=== PATIENT | female | born 1955 | race Caucasian/White ===

== ENCOUNTER → 2016-11-02 | Outpatient (CLI) | payer OTHER ==
[~2016-11-02] MED LIST: ACET-1138 PO; ASCO1CAP3 PO; ASPEC81 PO; B-COCAP2 PO; BIOT1CAP3 PO; CALC-51 PO; CURAMED PO; CYAN100020 PO; FEXO1TAB49 PO; FLUT0.15 NAE; GOLD500C3 PO; MELATAB2 PO; OMEG10007 PO; ONDA8TAB12 PO; OXYSR10 PO; RXC5 PO; SNK PO; TURM1CAP PO; VITA400C28 PO; ZINC PO
--- NOTE | 2016-11-03 07:38 | MAMMOGRAPHY REPORT ---
BILATERAL DIGITAL SCREENING MAMMOGRAM TOMOSYNTHESIS WITH CAD: 11/02/2016 CLINICAL HISTORY: Routine screening. TECHNIQUE: Breast tomosynthesis in addition to standard 2D mammography was performed. Current study was also evaluated with a Computer Aided Detection (CAD) system. COMPARISON: Comparison is made to exams dated: 10/30/2015 mammogram, 10/28/2014 mammogram, 03/29/2013 fito mogram, 03/08/2013 mammogram, 01/24/2012 mammogram, and 01/21/2011 mammogram - [facility] nter. BREAST COMPOSITION: The tissue of both breasts is heterogeneously dense, which may obscure small mas ses. FINDINGS: There is a possible 12 mm mass in the lateral, middle to posterior right breast on the CC view, and a 7 mm nodular asymmetry versus mass in the medial, middle to posterior right breast on the CC view. One of these asymmetries versus mass may project in the superior middle one third of the r ight breast on the MLO view. Additional spot compression tomosynthesis views and targeted ultrasound are recommended, although they could represent cysts. There is a small faint cluster of microcalcif ications in the 12:00 posterior right breast, warranting additional spot magnification views. No other suspicious mass, architectural distortion or cluster of microcalcifications is seen bilatera lly. The left breast is stable compared to prior mammograms. IMPRESSION: ACR BI-RADS CATEGORY 0: INCOMPLETE EVALUATION: NEED ADDITIONAL IMAGING EVALUATION The possible masses versus asymmetries in the right breast, and right breast microcalcifications in t he 12:00 axis need additional imaging evaluation. The patient will be called to schedule an appointment. Approximately 10% of breast cancers are not detected with mammography. A negative mammographic report should not delay biopsy if a clinically suggestive mass is present. Carlie Millan M.D. ay/:11/02/2016 16:17:05 Research Psychologist: Kayode LANZA(R)(M), [facility] letter sent: Addl Imaging 0 BI-RADS Code: ACR BI-RADS Category 0: Incomplete Evaluation: Need Additional Imaging Evaluation
== END | disposition home or self-care (01) ==
LOC: C.MAMM 08:12
PROVIDERS: ATTEND Family Medicine
DX: Z12.31 Encounter for screening mammogram for malignant neoplasm of breast (principal); R92.0 Mammographic microcalcification found on diagnostic imaging of breast; R92.8 Other abnormal and inconclusive findings on diagnostic imaging of breast

== ENCOUNTER → 2016-11-15 | Outpatient (CLI) | payer OTHER ==
--- NOTE | 2016-11-15 14:31 | MAMMOGRAPHY REPORT ---
UNILATERAL RIGHT DIGITAL DIAGNOSTIC MAMMOGRAM TOMOSYNTHESIS AND TARGETED RIGHT ULTRASOUND: 11/15/2016 CLINICAL HISTORY: Callback from screening mammogram for right breast calcifications and right breast asymmetries. Family history of breast cancer with her father diagnosed in his 70s. TECHNIQUE: Breast tomosynthesis in addition to standard 2D mammography was performed. Spot compress ion right CC and MLO tomosynthesis images including C views and spot magnification right cc and ML vi ews were obtained. COMPARISON: Comparison is made to exams dated: 11/02/2016 mammogram, 10/30/2015 mammogram, 10/28/2014 fito mogram, 09/27/2013 ultrasound, 09/27/2013 mammogram, and 03/29/2013 mammogram - [facility]. BREAST COMPOSITION: The tissue of the right breast is heterogeneously dense, which may obscure small masses. FINDINGS: Spot magnification views of the right breast demonstrate a small 3 mm cluster of very louann t amorphous calcifications in the right superior and slightly medial breast. The calcifications are not clearly stable compared to prior exams although there are technical differences which make it dif ficult to compare to the older prior exams. The options of short interval follow-up versus stereotac tic biopsy were discussed with the patient; given that long-term stability cannot be determined, I wo uld recommend stereotactic biopsy to exclude the possibility of DCIS. Other scattered punctate benig n-appearing calcifications are seen within the right breast. Spot compression views demonstrate an oval circumscribed 10 mm mass seen within the right upper inner quadrant, best seen on the cc tomosynthesis images. The other previously described possible mass wi thin the right lateral breast does not persist on the additional spot compression views and likely re presents normal fibroglandular tissue. Targeted ultrasound was performed of the area of the right breast asymmetries. In the right breast a t 1:00, 4 cm from the nipple, there is an oval circumscribed parallel mass which measures 8 x 3 x 7 m m. The mass is partially anechoic and partially hypoechoic. This likely corresponds with the mammog raphic mass and is probably benign and likely represents a complicated cyst versus a benign mass such as a fibroadenoma. Targeted ultrasound of the right lateral breast in the region of the mammographi c asymmetry demonstrates no suspicious masses or other suspicious sonographic abnormalities. IMPRESSION: ACR BI-RADS CATEGORY 4: SUSPICIOUS, TARGETED ULTRASOUND ACR BI-RADS CATEGORY 4: SUSPICIO US 1. Small 3 mm cluster of very faint calcifications in the right upper inner quadrant. The calcifica tions are indeterminate and stereotactic biopsy is recommended for further evaluation. 2. Circumscribed benign-appearing 8 mm mass in the right breast at 1:00, which is probably benign an d likely represents a complicated cyst versus a benign mass such as a fibroadenoma. Pending benign p athology of the right breast biopsy, recommend follow-up diagnostic mammograms and ultrasound of the right breast in 6 months to confirm stability. A phone call was made to the physician's office to confirm faxed results were received. The patient has been verbally notified of the results. She would like to discuss the results and recommendations with Dr. Soriano before scheduling a biopsy. Approximately 10% of breast cancers are not detected with mammography. A negative mammographic report should not delay biopsy if a clinically suggestive mass is present. Odalys Bradford M.D. ah/:11/15/2016 12:02:53 Buttonhole Marker: Agnieszka LANZA(Cristina)(Johnny), [facility] letter sent: Abnormal 4/5 BI-RADS Code: ACR BI-RADS Category 4: Suspicious Ultrasound BI-RADS: ACR BI-RADS Category 4: Suspici ous
== END | disposition home or self-care (01) ==
LOC: C.MAMM 09:29
PROVIDERS: ATTEND Family Medicine
DX: Z12.31 Encounter for screening mammogram for malignant neoplasm of breast (principal); N63 Unspecified lump in breast; R92.1 Mammographic calcification found on diagnostic imaging of breast

== ENCOUNTER → 2016-12-08 | Outpatient (CLI) | payer OTHER ==
--- NOTE | 2016-12-08 14:28 | Discharge Instructions ---
Discharge Instructions Procedure Procedure Date: Dec 08, 2016. Reason for visit: Rt Calcs. Discharge Discharge Date: Dec 08, 2016. Discharge Diagnosis: status post breast biopsy Instructions Activity Recommendations: Additional Limitations (see below) Return to School/Work: no limitations Recommended Home Diet: No Limitations Provider Instructions: ACTIVITY RECOMMENDATIONS: * No lifting, pushing, pulling or exercising the affected side for three days. RETURN TO SCHOOL/WORK: * You may return to work/school after the procedure, but do not perform any strenuous activities for 24 to 48 hours. MEDICATIONS: * Tylenol (two 325 mg) every four to six hours if needed for mild pain (if not allergic to Tylenol). DIET: * Resume previous diet. SPECIAL CARE INSTRUCTIONS: * Keep biopsy site dry for 24 hours. May shower after 24 hours, but do not soak (bathe) incision. * May remove Tegaderm (plastic patch) tomorrow AFTER showering. * Leave the steri-strips on for one week. Allow the steri-strips to fall off by themselves. If not off after one week, you may remove them. You may place a Bandaid crosswise over the strips, if desired. * Apply ice 10 minutes on and 10 minutes off as needed. * Wear a bra at bedtime to sleep more comfortably for 2-3 days. * Your referring physician should have the results after approximately 5 to 7 business days. * Call for unusual bleeding, fever, drainage, etc or if you have any questions call during normal business hours or after hours call Dr Bradford, [phone]. FOLLOW UP VISIT: Follow-up with Referring Physician as scheduled. Allergies Coded Allergies: Penicillins (Verified Allergy, Unknown, CANKER SORES, 04/08/16) Roberto Carlos Hinojosa Recommendations: Call your doctor if: * Temperature above 101 degrees * Pain not relieved by pain medicine ordered * There is increased drainage or redness from any incision * You have any unanswered questions or concerns. Your Doctors Instructions noted above were prepared by provider Odalys Bradford. Patient Signature Section: Patient Instructions Signature Page Agnieszka Figueroa Patient (or Guardian) Signature/Date: I have read and understand the instructions given to me by my caregivers. Caregiver/RN/Doctor Signature/Date: The above-named patient and/or guardian has received patient instructions on this date. + Original Patient Signature Page (only) stays with chart. Please make copy for patient.
--- NOTE | 2016-12-08 15:18 | MAMMOGRAPHY REPORT ---
STEREOTACTIC GUIDED BIOPSY RIGHT BREAST: 12/08/2016 CLINICAL HISTORY: Indeterminate calcifications in the right upper inner quadrant. PATIENT CONSENT: The procedure, risks, benefits, and alternatives of stereotactic biopsy with clip pl acement were discussed with the patient, and verbal and written consent was obtained. A timeout was performed immediately prior to the procedure. PROCEDURE DESCRIPTION: With stereotactic guidance, aseptic technique, and lidocaine as a local anesth etic (1% lidocaine to anesthetize the skin and 1% lidocaine with epinephrine to anesthetize the deepe r tissues), the calcifications of concern in the right upper inner quadrant were sampled multiple dann es with a 9-gauge vacuum-assisted biopsy needle (Nveloped). The path of approach was medial. The specimen radiograph demonstrates calcifications to be present in the samples. A metallic marker cli p was placed at the biopsy site. This was confirmed on postprocedure mammograms. Direct pressure wa s applied at the biopsy site and hemostasis was readily achieved. The patient tolerated the procedur e without complication. She was given wound care instructions. COMPARISON: Comparison is made to exams dated: 11/15/2016 ultrasound, 11/15/2016 mammogram, 11/02/2016 mammogram, 10/30/2015 mammogram, 10/28/2014 mammogram, and 09/27/2013 ultrasound - [facility] nter. IMPRESSION: STEREOTACTIC GUIDED BIOPSY Stereotactic biopsy of indeterminate calcifications in the right upper inner quadrant, with clip plac ement. The patient will receive pathology results from her referring provider. Pending benign patho logy results, recommend follow-up diagnostic mammograms and ultrasound of the right breast in 6 month s to confirm stability of a right 1:00 benign-appearing breast mass. Odalys Bradford M.D. ah/:12/08/2016 14:36:31 Movement Assembler: Fadumo MARI)(Johnny), [facility]
--- NOTE | 2016-12-08 15:20 | MAMMOGRAPHY REPORT ---
UNILATERAL RIGHT DIGITAL DIAGNOSTIC MAMMOGRAM: 12/08/2016 CLINICAL HISTORY: Status post right breast stereotactic biopsy. TECHNIQUE: Right CC and ML views were obtained. COMPARISON: Comparison is made to exams dated: 11/15/2016 mammogram, 11/02/2016 mammogram, 10/30/2015 ma mmogram, 10/28/2014 mammogram, 09/27/2013 mammogram, and 03/29/2013 mammogram - [facility] er. BREAST COMPOSITION: The tissue of the right breast is heterogeneously dense, which may obscure small masses. FINDINGS: Preprocedural right ML view was obtained for biopsy planning purposes. Postprocedural rig ht CC and ML views were obtained, which shows a new biopsy marker clip at the site of the biopsied ca lcifications in the right upper inner quadrant. No significant postbiopsy hematoma is seen. IMPRESSION: POST PROCEDURE IMAGING FOR MARKER PLACEMENT New biopsy marker clip status post right breast stereotactic biopsy. Pathology results are pending. Pending benign pathology results, recommend follow-up diagnostic mammograms and ultrasound of the rig ht breast in 6 months to confirm stability of a right 1:00 benign-appearing breast mass. Approximately 10% of breast cancers are not detected with mammography. A negative mammographic report should not delay biopsy if a clinically suggestive mass is present. Odalys Bradford M.D. ah/:12/08/2016 14:40:07 Pain Coordinator: Fadumo MARI)(Johnny), [facility] BI-RADS Code: Post Procedure Imaging For Marker Placement
== END | disposition home or self-care (01) ==
LOC: C.MAMM 13:32
PROVIDERS: ATTEND Family Medicine
DX: R92.0 Mammographic microcalcification found on diagnostic imaging of breast (principal)

== ENCOUNTER → 2017-05-18 | Outpatient (CLI) | payer OTHER ==
--- NOTE | 2017-05-18 15:42 | MAMMOGRAPHY REPORT ---
UNILATERAL RIGHT DIGITAL DIAGNOSTIC MAMMOGRAM TOMOSYNTHESIS WITH CAD AND TARGETED RIGHT ULTRASOUND: CLINICAL HISTORY: 62-year-old woman presents for follow-up in the right breast for a benign-appearing 8 mm mass seen in the 1:00 axis on ultrasound. Patient also had a benign stereotactic guided biopsy 6 months ago for microcalcifications in the medial right breast. TECHNIQUE: Right breast tomosynthesis in addition to standard 2D mammography was performed. Current davis latham was also evaluated with a Computer Aided Detection (CAD) system. COMPARISON: Comparison is made to exams dated: 12/08/2016 stereotactic biopsy, 11/15/2016 ultrasound, 11/15/2016 mammogram, 11/02/2016 mammogram, 10/30/2015 mammogram, and 10/28/2014 mammogram - [facility]. BREAST COMPOSITION: The tissue of the right breast is heterogeneously dense, which may obscure small masses. FINDINGS: There is a stable metallic biopsy marker in the 2:00 to 3:00 middle one third of the right breast, denoting the site of recent benign stereotactic guided biopsy. An oval circumscribed 8.5 mm mass is again seen in the medial, middle one third of the right breast on the cc view, likely corresp onding to the sonographic finding described on previous reports. There is an asymmetry in the latera l, middle one third of the right breast best seen on cc tomosynthesis slice 37/60, which could repres ent normal tissue and appears somewhat similar to the prior tomosynthesis view although further evalu ation with ultrasound was also performed in the lateral right breast. No new suspicious areas of arc hitectural distortion, new microcalcifications or other suspicious mass is identified. Targeted ultrasound was performed in the 1:00 right breast, 4 cm from the nipple. An oval parallel c ircumscribed hypoechoic solid versus cystic mass is again identified measuring 9.0 x 2.9 x 7.5 mm. G iven slight differences in measuring technique, this has not significantly changed comparing to the p reverer ultrasound dated 11/15/2016. Another six-month follow-up targeted ultrasound is recommended to ensure longer stability. Throughout the lateral right breast including the 12:00 and 6:00 axes, sono graphically normal tissue is seen without a suspicious solid or cystic mass. IMPRESSION: ACR-BI-RADS CATEGORY 3: PROBABLY BENIGN, TARGETED ULTRASOUND ACR-BI-RADS CATEGORY 3: PRO BABLY BENIGN 1. Stable postbiopsy changes in the 2:00 to 3:00 right breast. 2. A stable circumscribed benign-appearing 8.5 mm mammographic mass in the 1:00 axis is thought to c orrelate with the benign-appearing hypoechoic solid versus cystic mass identified in the 1:00 right b reast on targeted ultrasound. Another six-month follow-up right diagnostic tomosynthesis mammogram a nd repeat targeted ultrasound is recommended to ensure longer stability of this benign-appearing mass es. 3. An asymmetry in the lateral right breast on the CC tomosynthesis images has no suspicious sonogra phic correlate and could represent a prominent fat lobule surrounded by dense tissue in the right upp er outer breast. Nevertheless, repeat assessment at follow-up is also recommended. Annual left mamm ography will also be due at that time. These results were recommendations were discussed with the patient at the time of the exam. Approximately 10% of breast cancers are not detected with mammography. A negative mammographic report should not delay biopsy if a clinically suggestive mass is present. Carlie Millan M.D. ay/:05/18/2017 09:14:15 House Piping Inspector: Nora LANZA(Cristina)(M), [facility] letter sent: Follow Up Recommended 3 BI-RADS Code: ACR-BI-RADS Category 3: Probably Benign Ultrasound BI-RADS: ACR-BI-RADS Category 3: Pr obably Benign
== END | disposition home or self-care (01) ==
LOC: C.MAMM 08:28
PROVIDERS: ATTEND Family Medicine
DX: N63.10 Unspecified lump in the right breast, unspecified quadrant (principal); N64.9 Disorder of breast, unspecified

== ENCOUNTER → 2017-11-16 | Outpatient (CLI) | payer OTHER ==
[~2017-11-16] MED LIST changes: -ASPEC81 PO; +ASPI-320 PO
--- NOTE | 2017-11-17 07:57 | MAMMOGRAPHY REPORT ---
BILATERAL DIGITAL DIAGNOSTIC MAMMOGRAM TOMOSYNTHESIS WITH CAD AND TARGETED RIGHT ULTRASOUND: 8 CLINICAL HISTORY: Six-month follow-up of right breast mass. The patient reports no new lumps or other complaints. Family history of breast cancer including her father. History of benign stereotactic bio psy. TECHNIQUE: The study was acquired using full field digital technology and interpreted from soft copy. Breast tomosynthesis in addition to standard 2D mammography was performed. Current study was also ev aluated with a Computer Aided Detection (CAD) system. Bilateral CC and MLO 2D and tomosynthesis imag es were obtained. COMPARISON: Comparison is made to exams dated: 05/18/2017 mammogram, 12/08/2016 mammogram, 11/15/2016 m ammogram, 11/02/2016 mammogram, 10/30/2015 mammogram, and 10/28/2014 mammogram - [facility]. BREAST COMPOSITION: The tissue of both breasts is heterogeneously dense, which may obscure small mass es. FINDINGS: Again noted is an oval low-density partially circumscribed and partially obscured mass within the rig ht medial breast on the cc view. The mass is stable mammographically compared to the October 2016 exam, and in retrospect is also not significantly changed on 2D views compared to multiple prior exams inc luding the 2011 exam. The remainder of both breasts are stable compared to prior exams, without susp icious masses, calcifications, or areas of architectural distortion noted. A biopsy clip is again no riley within the right upper inner quadrant. An asymmetry within the left medial breast on the cc view appears similar to multiple prior exams including the 2008 exam and has the appearance of normal fib roglandular tissue on the tomosynthesis images. Targeted ultrasound was performed of the right 1:00 breast in the region of the previously seen mammo graphic mass. In the right 1:00 breast, 4 cm from the nipple, again noted is an oval circumscribed h ypoechoic parallel benign-appearing mass which measures 8 x 3 x 8 mm, not significantly changed on ul trasound dating back to October 2016 exam. Additionally, this corresponds with a mammographic mass whic h has been stable dating back to the 2011 exam and is therefore considered benign given the morpholog y and long-term stability. IMPRESSION: ACR BI-RADS CATEGORY 2: BENIGN, ULTRASOUND ACR BI-RADS CATEGORY 2: BENIGN Circumscribed hypoechoic 8 mm mass in the right 1:00 breast is stable on ultrasound dating back to October 2016 exam, and mammographically dating back to at least the 2011 exam. The mass is considered benign given the morphology and long-term stability. There is no mammographic or sonographic eviden ce of malignancy. A 1 year screening mammogram is recommended.(11/17/2018) The patient has been verb ally notified of the results. Some breast cancers are not detected with mammography. A negative mammographic report should not marcelo y biopsy if a clinically suggestive mass is present. Odalys Bradford M.D. ah/:11/16/2017 09:36:32 Er Rn: RT Tiffanie(Cristina)(M), [facility] letter sent: Normal /2 OVERALL STUDY BIRADS: 2 Benign
== END | disposition home or self-care (01) ==
LOC: C.MAMM 08:26
PROVIDERS: ATTEND Family Medicine
DX: N63.12 Unspecified lump in the right breast, upper inner quadrant (principal)

== ENCOUNTER 2019-01-01 13:08 | Observation (INO) ==
[2019-01-01 13:55] LABS: Basophils # (auto) 0.01 K/uL (0-0.2); Basophils % (auto) 0.2 %; Eosinophils # (auto) 0.07 K/uL (0-0.5); Eosinophils % (auto) 1.1 %; Hematocrit (blood only) 31.7 % (37-47); Hemoglobin 10.7 g/dL (12.0-16.0); Immature Granulocytes # (auto) 0.01 K/uL (0.00-0.02); Immature Granulocytes % (auto) 0.2 %; Lymphocytes # (auto) 1.28 K/uL (1.2-3.4); Lymphocytes % (auto) 19.2 %; Mean Corpuscular Hgb Conc 33.8 g/dL (32-36); Mean Corpuscular Volume 86.6 fL (80-100); Mean Platelet Volume 9.1 fL (7.4-10.4); Neutrophils # (auto) 4.88 K/uL (1.4-6.5); Neutrophils % (auto) 73.3 %; Platelet Count 192 K/uL (130-400); RDW Coefficient of Variation 13.5 % (11.5-14.5); RDW Standard Deviation 42.9 fL (36.4-46.3); Red Blood Count 3.66 M/uL (4.2-5.4); White Blood Count 6.65 K/uL (4.8-10.8)
--- NOTE | 2019-01-01 14:06 | XRay Report ---
XR chest 1V portable CLINICAL HISTORY: weakness COMPARISON STUDY: No previous studies for comparison. FINDINGS: The heart is normal in size. There is no failure. There is no lobar consolidation. There ar e minimal right basilar opacity statistically atelectatic. No pleural effusions are visualized. [ IMPRESSION: Minimal right basilar opacity statistically atelectatic Electronically signed by: Demarco Rice M.D. 01/01/2019 2:04 PM
[2019-01-01 14:18] LABS: Albumin Globulin Ratio 1.2 (0.9-2); Albumin Level 3.3 gm/dl (3.4-5.0); Aspartate Aminotransferase 16 U/L (15-37); BUN Creatinine Ratio 28.9 (10-20); Bilirubin,Total 0.6 mg/dl (0.2-1); Blood Urea Nitrogen 20 mg/dl (7-18); Calcium 7.8 mg/dl (8.5-10.1); Carbon Dioxide 24 mmol/L (21-32); Chloride 107 mmol/L (98-107); Creatinine Clr Calc Pharmacy 73.1 ml/min; Est GFR (African American) 107.9; Est GFR (Non-African American) 93.1; Globulin 2.7 gm/dl (2.5-4.0); Glucose 175 mg/dl (70-99); Potassium 3.8 mmol/L (3.5-5.1); Sodium 139 mmol/L (136-145)
--- NOTE | 2019-01-01 14:27 | Emergency Department Note ---
History of Present Illness General Chief complaint: Syncope Time Seen by Provider: 01/01/19 14:03 History of Present Illness This 63-year-old female arrived to the ED via EMS with complaints of syncopal episode. The patient was at [facility] for lunch when she felt flushed and lightheaded and sweaty and she felt like she was lightheaded and going to pass out. The patient states that she put her head down on the table and frequently she tried to leaf size picker her head and she still felt like she was going to pass out. Her friends which are with her stated that she was nonresponsive for approximately 5 seconds. The patient denies any recent cold symptoms. The patient denies any history of heart palpitations. The patient states that she ate yogurt and a banana at 730 this morning. She does not feel like she was dehydrated. The patient does admit that this morning she had several loose bowel movements with a large amount of blood within the bowel movements. The patient denies any abdominal pain. The patient is up-to-date on her colonoscopies. She admits that her last colonoscopy showed some diverticuli but no evidence of diverticulitis. The patient denies any urinary symptoms of frequency, urgency, dysuria or hematuria. The patient states that she only takes Advil on a as needed basis for her osteoarthritis. She denies any history of GERD or reflux. Home Medications Home Medications Medication Instructions Recorded Confirmed Type atorvastatin 10 mg PO QPM 01/01/19 01/01/19 History calcium carbonate-vitamin D3 1 tab PO DAILY 01/01/19 01/01/19 History [Calcium 500 + D] vitamin B complex 1 tab PO DAILY 01/01/19 01/01/19 History vitamin E 1,000 unit PO DAILY 01/01/19 01/01/19 History Allergies Allergy/AdvReac Type Severity Reaction Status Date / Time Penicillins Allergy Unknown CANKER Verified 01/01/19 14:56 SORES Past Med/Surg History Medical History No significant past medical history No significant past surgical history Social History Preferred Language: Bulgarian Hearing Ability: Normal marital status: Current Living Situation: Spouse Feels Safe at Home: Yes Smoking Status: Never smoker Review of Systems A total of 10 systems reviewed and were otherwise negative Physical Exam Vital Signs Vital Signs - 24 hr 01/01/19 13:13 01/01/19 13:15 01/01/19 13:16 Temperature 36.5 C Temperature Source Oral Sepsis Recent Fever Within 48 Hours No Sepsis New/Unexplained Change in Mental Status No Sepsis Action Taken by Nursing No Action Required Pulse Rate - Lying 71 Pulse Rate - Sitting 74 Pulse Rate - Standing 85 Pulse Rate 72 73 72 Pulse Rate from SpO2 Sensor 71 Respiratory Rate 18 20 22 Blood Pressure - Lying 110/59 L Blood Pressure - Sitting 110/64 Blood Pressure- Standing 117/57 L Blood Pressure 114/62 102/59 L 110/59 L Blood Pressure Mean 79 73 76 Pulse Oximetry 100 99 Oxygen Delivery Method Room Air 01/01/19 13:17 01/01/19 13:18 01/01/19 13:20 Temperature Temperature Source Sepsis Recent Fever Within 48 Hours Sepsis New/Unexplained Change in Mental Status Sepsis Action Taken by Nursing Pulse Rate - Lying Pulse Rate - Sitting Pulse Rate - Standing Pulse Rate 76 85 72 Pulse Rate from SpO2 Sensor 72 73 74 Respiratory Rate 20 19 24 Blood Pressure - Lying Blood Pressure - Sitting Blood Pressure- Standing Blood Pressure 110/64 117/57 L Blood Pressure Mean 79 77 Pulse Oximetry 97 89 L 87 L Oxygen Delivery Method 01/01/19 13:30 01/01/19 13:40 01/01/19 13:50 Temperature Temperature Source Sepsis Recent Fever Within 48 Hours Sepsis New/Unexplained Change in Mental Status Sepsis Action Taken by Nursing Pulse Rate - Lying Pulse Rate - Sitting Pulse Rate - Standing Pulse Rate 74 77 72 Pulse Rate from SpO2 Sensor 73 Respiratory Rate 15 13 15 Blood Pressure - Lying Blood Pressure - Sitting Blood Pressure- Standing Blood Pressure 97/57 L Blood Pressure Mean 70 Pulse Oximetry 96 Oxygen Delivery Method 01/01/19 14:00 01/01/19 14:10 01/01/19 14:20 Temperature Temperature Source Sepsis Recent Fever Within 48 Hours Sepsis New/Unexplained Change in Mental Status Sepsis Action Taken by Nursing Pulse Rate - Lying Pulse Rate - Sitting Pulse Rate - Standing Pulse Rate 75 74 83 Pulse Rate from SpO2 Sensor Respiratory Rate 18 16 16 Blood Pressure - Lying Blood Pressure - Sitting Blood Pressure- Standing Blood Pressure 100/54 L Blood Pressure Mean 69 Pulse Oximetry Oxygen Delivery Method 01/01/19 14:30 01/01/19 14:40 01/01/19 14:50 Temperature Temperature Source Sepsis Recent Fever Within 48 Hours Sepsis New/Unexplained Change in Mental Status Sepsis Action Taken by Nursing Pulse Rate - Lying Pulse Rate - Sitting Pulse Rate - Standing Pulse Rate 81 81 80 Pulse Rate from SpO2 Sensor Respiratory Rate 20 16 13 Blood Pressure - Lying Blood Pressure - Sitting Blood Pressure- Standing Blood Pressure 102/55 L Blood Pressure Mean 70 Pulse Oximetry Oxygen Delivery Method 01/01/19 15:01 01/01/19 15:03 01/01/19 15:10 Temperature Temperature Source Sepsis Recent Fever Within 48 Hours Sepsis New/Unexplained Change in Mental Status Sepsis Action Taken by Nursing Pulse Rate - Lying Pulse Rate - Sitting Pulse Rate - Standing Pulse Rate 76 74 74 Pulse Rate from SpO2 Sensor 75 Respiratory Rate 22 17 16 Blood Pressure - Lying Blood Pressure - Sitting Blood Pressure- Standing Blood Pressure 119/65 Blood Pressure Mean 83 Pulse Oximetry 99 Oxygen Delivery Method GENERAL: 63-year-old female appears in no acute distress. MENTAL Status: Alert and oriented x3. EYES: PERRLA. EOMs intact. EARS: Canals clear. TMs without fluid level noted. NECK: Supple, no lymphadenopathy noted. No carotid bruits noted. LUNGS: Clear auscultation without wheezes rales or rhonchi. CARDIAC: Regular rate and rhythm without murmur. Pulses is full and equal throughout. ABDOMEN: Positive bowel sounds all 4 quadrants. Soft, nontender to palpation without organomegaly or masses. RECTAL: No external masses noted. Anal sphincter tone intact. No internal masses noted. Stool guaiac was grossly positive. NEURO:Cranial nerves two through 12 intact. Cerebellar function intact with [id number]. Fine motor intact with alternating finger motions. LOWER EXTREMITIES: No cyanosis or edema noted. Calves are nontender. Medical Decision Making Differential Diagnosis GI bleed, C. difficile, dehydration, vasovagal syncope, anemia, hypotensive Medical Records Attestation: I reviewed the patient's medical records. Home Medications Current Medication List: was personally reviewed by me Laboratory Data Attestation: I reviewed the patient's lab results. Result diagrams: 01/01/19 13:44 01/01/19 13:44 Lab Results 01/01/19 01/01/19 01/01/19 Range/Units 13:44 13:44 13:44 WBC 6.65 (4.8-10.8) K/uL RBC 3.66 L (4.2-5.4) M/uL Hgb 10.7 L (12.0-16.0) g/dL Hct 31.7 L (37-47) % MCV 86.6 (80-100) fL MCH 29.2 (25-34) pg MCHC 33.8 (32-36) g/dL RDW Std Deviation 42.9 (36.4-46.3) fL RDW Coeff of Felipe 13.5 (11.5-14.5) % Plt Count 192 (130-400) K/uL MPV 9.1 (7.4-10.4) fL Immature Gran % (Auto) 0.2 % Neut % (Auto) 73.3 % Lymph % (Auto) 19.2 % Grady % (Auto) 6.0 % Eos % (Auto) 1.1 % Baso % (Auto) 0.2 % Immature Gran # (Auto) 0.01 (0.00-0.02) K/uL Neut # (Auto) 4.88 (1.4-6.5) K/uL Lymph # (Auto) 1.28 (1.2-3.4) K/uL Grady # (Auto) 0.40 (0.11-0.59) K/uL Eos # (Auto) 0.07 (0-0.5) K/uL Baso # (Auto) 0.01 (0-0.2) K/uL PT 10.5 (9.0-12.0) Seconds INR 1.0 (0.9-1.1) Sodium 139 (136-145) mmol/L Potassium 3.8 (3.5-5.1) mmol/L Chloride 107 (98-107) mmol/L Carbon Dioxide 24 (21-32) mmol/L Anion Gap 8.0 (3-11) BUN 20 H (7-18) mg/dl Creatinine 0.68 (0.6-1.2) mg/dl Est Cr Clr Drug Dosing 73.1 ml/min Est GFR ( Amer) 107.9 Est GFR (Non-Af Amer) 93.1 BUN/Creatinine Ratio 28.9 H (10-20) Glucose 175 H (70-99) mg/dl Calcium 7.8 L (8.5-10.1) mg/dl Total Bilirubin 0.6 (0.2-1) mg/dl AST 16 (15-37) U/L ALT 21 (12-78) U/L Alkaline Phosphatase 59 (45-117) U/L Troponin I < 0.015 (0-0.045) ng/ml Total Protein 6.0 L (6.4-8.2) gm/dl Albumin 3.3 L (3.4-5.0) gm/dl Globulin 2.7 (2.5-4.0) gm/dl Albumin/Globulin Ratio 1.2 (0.9-2) TSH 1.970 (0.300-4.500) uIu/ml Imaging Data My Impression: No active disease Radiologist's Impression: XR chest 1V portable CLINICAL HISTORY: weakness COMPARISON STUDY: No previous studies for comparison. FINDINGS: The heart is normal in size. There is no failure. There is no lobar consolidation. There are minimal right basilar opacity statistically atelectatic. No pleural effusions are visualized. [ IMPRESSION: Minimal right basilar opacity statistically atelectatic Electronically signed by: Demarco Rice M.D. 01/01/2019 2:04 PM Dictated: 01/01/19 1403 Transcribed: 01/01/19 1403 ECG Data Attestation: I personally reviewed and interpreted this ECG as follows: Indication: syncope Rate (beats per minute): 65 Rhythm: normal sinus Blood Pressure Blood Pressure Findings: Low blood pressure MDM Narrative The patient was evaluated. IV access was obtained. The patient had already received 750 mL's of saline in route as well as 4 mg of Zofran. The patient was placed on a monitor and continuous pulse ox. CBC and differential, renal profile, LFTs and lipase levels were ordered. C. difficile toxin was ordered. Chest x-ray was ordered interpreted as above without any acute findings. EKG was ordered and interpreted as above with normal sinus rhythm at a rate of 65. Labs were reviewed. The patient's white count was normal at 6.65. The patient hemoglobin was low at 10.7 and hematocrit low at 31.7. Renal profile revealed BUN slightly elevated at 20 but sodium and potassium were normal. The patient went to give a sample for C. difficile and the nurse came to inform me that it was large bloody clots within the hat. I discussed the case with Dr. holley who agreed with treatment plan. A CT of the abdomen pelvis was ordered with IV contrast. The patient was informed of the findings and the hospitalist was consulted for admission for GI bleed. Impression & Plan Acute GI bleeding, Syncope Discharge Plan Visit Data Chief Complaint: Syncope Other Complaint: Dizziness ED Provider: Jihan Holley ED Midlevel Provider: Fanny Ashley Discharge Problem: Acute GI bleeding, Syncope Patient Disposition: Being Evaluated by Hospitalist Condition: Good Forms Stand Alone Forms: [facility] Prescriptions Prescriptions: No Action atorvastatin 10 mg tablet 10 mg PO QPM RF: 0 vitamin E 1,000 unit Capsule 1,000 unit PO DAILY RF: 0 vitamin B complex Tablet 1 tab PO DAILY RF: 0 calcium carbonate-vitamin D3 [Calcium 500 + D] 500 mg(1,250mg) -200 unit Tablet 1 tab PO DAILY RF: 0 Referrals Referrals: Felecia Dennis, [Primary Care Provider] -
[2019-01-01 14:41] LABS: Alanine Aminotransferase 21 U/L (12-78); Alkaline Phosphatase 59 U/L (45-117); Troponin I < 0.015 ng/ml (0-0.045)
[2019-01-01 14:44] LABS: Prothrombin Time 10.5 Seconds (9.0-12.0)
[2019-01-01] MEDS ORDERED: IOVERSOL 100ml IV PRN (16:08)
--- NOTE | 2019-01-01 16:19 | CT Scan Report ---
CT abd pelvis IV con only CLINICAL HISTORY: 63 years-old Female presenting with Gross bloody diarrhea/GI bleed. TECHNIQUE: Multidetector CT of the abdomen and pelvis was performed after the administration of intra venous contrast. IV contrast: 95 mL of Optiray 320. One or more dose lowering techniques were used co nsistent with the principles of ALARA (as low as reasonably achievable), including automatic exposure control, mA or kV adjustment to individual patient size, and/or use of iterative reconstruction. COMPARISON: None. CT DOSE (mGy.cm): The estimated cumulative dose is 295.62 mGycm. FINDINGS: Picture Framer topogram: Unremarkable. Lung bases: Normal heart size. No pericardial or pleural effusion. Minimal dependent changes likely a telectasis. Liver: Normal morphology. No liver lesion. Patent hepatic vasculature. Biliary: No intrahepatic or extrahepatic biliary ductal dilatation. Normal gallbladder. Pancreas: Normal. Pancreas divisum suspected. Spleen: Normal. Adrenal glands: Normal. Kidneys and ureters: Bilateral nonobstructing renal calculi at the upper poles, the largest calculus on the right measuring 2 mm. Normal renal parenchymal enhancement. No hydronephrosis. Ureters nondist ended. Trace urothelial thickening diffusely. Bladder: The configuration of the bladder suggests pelvic ligamentous laxity. Bladder otherwise tamra l. Pelvic organs: Uterus and ovaries normal. Bowel: Diverticulosis of the sigmoid and distal descending colon without wall thickening or pericolon ic inflammatory change. Few colonic diverticula noted elsewhere. Mild circumferential wall thickening of the ascending colon and proximal to mid transverse colon without pericolonic inflammatory change. The appendix is normal. Feces in the distal small bowel without bowel obstruction suggest delayed tr ansit or bacterial overgrowth. Peritoneal cavity: No free fluid or intraperitoneal gas. Lymph nodes: No enlarged lymph nodes in the abdomen or pelvis. Vasculature: Atherosclerosis of the normal caliber abdominal aorta. IVC patent. Abdominal wall: Normal. Musculoskeletal: Lipoma within the right iliotibial band. Degenerative changes focally of L1-2 with i ntervertebral disc height loss and vacuum disc phenomenon. Nonspecific lucency within endplate sclero sis evident in L1. IMPRESSION: 1. Wall thickening of the ascending and proximal to mid transverse colon most suggestive of a mild c olitis. The distribution is nonspecific and could suggest an infectious etiology. 2. Diverticulosis coli. No convincing evidence of diverticulitis. 3. Bilateral nonobstructing nephrolithiasis. Electronically signed by: Edvin Arevalo M.D. 01/01/2019 4:17 PM
--- NOTE | 2019-01-01 16:42 | Gastrointestinal Consultation ---
Date of Consultation January 01, 2019 Assessment & Plan (1) Rectal hemorrhage: (2) Anemia: Pt is a 63 y/o female w painless rectal bleeding starting this morning. Denies any n/v, rectal pain itching, pain, abd pain. She did have presyncopal and light headedness, found to be mildly anemic on presentation. Hx of hyperplastic polyp, diverticulosis on prior colonoscopies. Suspect likely diverticular bleeding but other differential include infectious/inflammatory disease, ischemic colitis & malignancy less likely. - CL diet today - IVF hydration - Monitor H/H; transfuse prn - NPO after midnight for colonoscopy evaluation tomorrow by Dr. Weaver. Golytely prep ordered - Check stool cx and Cdiff to r/o infectious processes Supervising Physician Co-Signing Physician Notes I performed a history and physical examination of the patient, including specifically on physical exam - soft, nontender abdomen. I have discussed the patient's management with Melva. Please refer to the nurse practitioner's note for the documented findings and plan of care. Colonoscopy tomorrow. History of Present Illness Reason for Consultation: Anemia, rectal bleeding Requesting Physician: MARILIN Lemus Attending Physician: Dr. Jay Weaver History of Present Illness Pt is a 63 y/o female who presented w presyncopal episode and light headedness this AM. She woke up this AM around 6:30a and had urge to defecate. Noted BRBR wo abd pain, rectal pain or itching . Between 6:30a to around noon had >5 episodes of rectal bleeding. She denies abd pain, n/v, fever, chills, CP, sob or palpitations. She did feel light headed, hot flash sensation by around noon when she had lunch. Had to rest head and friend who was with her noted she was weak and not responding for a few seconds. Upon eval noted she is anemic w H/H 02/22. BUN 20. Pt denies any sick contact, + recent travels to the beach, denies any raw/undercooked meats/seafood, denies any recent antibx. She had hx of hyperplastic colon polyp and diverticulosis. Colonoscopies done in 2005 and 2010. She takes Advil on regular basis for arthritis. Denies any abd pain, heartburn feeling while on this med. Denies any blood thinners/antiplatelet. Allergies Allergy/AdvReac Type Severity Reaction Status Date / Time Penicillins Allergy Unknown CANKER Verified 01/01/19 14:56 SORES Home Medications Home Medications Medication Instructions Recorded Confirmed Type ascorbic acid (vitamin C) [Vitamin 500 mg PO HS 01/01/19 01/01/19 History C] atorvastatin 10 mg PO QPM 01/01/19 01/01/19 History biotin 1,000 mcg PO HS 01/01/19 01/01/19 History calcium carbonate [Calcium 500] 1,000 mg PO HS 01/01/19 01/01/19 History glucosamine HCl 1,000 mg PO HS 01/01/19 01/01/19 History goldenseal 325 mg PO HS 01/01/19 01/01/19 History lorazepam 0.5 mg PO HS PRN 01/01/19 01/01/19 History methylsulfonylmethane [MSM] 1,000 mg PO HS 01/01/19 01/01/19 History omega 5-aey-diz-fish oil [Fish Oil] 1 cap PO HS 01/01/19 01/01/19 History turmeric 1,600 mg PO HS 01/01/19 01/01/19 History valerian root extract 300 mg PO HS 01/01/19 01/01/19 History vitamin B complex 1 tab PO HS 01/01/19 01/01/19 History vitamin E 400 unit PO HS 01/01/19 01/01/19 History zinc 50 mg PO HS 01/01/19 01/01/19 History Patient History Medical History Dyslipidemia (Chronic) Surgical History S/P hip arthroscopy (Chronic) left Family History Mother Cerebral hemorrhage Brother Prostate cancer Social History Preferred Language: Turkmen Communication Ability: Effective Hearing Ability: Normal Beliefs That Will Affect Care: None marital status: Current Living Situation: Spouse Other Information That Helps Us Care for You: No Feels Safe at Home: Yes Smoking Status: Former smoker Hx Alcohol Use: Yes Alcohol Intake Frequency: Weekly Review of Systems Review of Systems: All systems reviewed & are unremarkable except as noted in HPI & below Physical Exam Constitutional: WD/WN, vitals as above well groomed, cooperative and comfortable Eyes: PERRL, conjunctivae normal, anicteric sclerae ENMT: external ear and nose normal, oropharynx normal Respiratory: normal respiratory effort, lungs clear to auscultation Cardiovascular: RRR, no murmur, no edema Gastrointestinal (Abdomen): normal bowel sounds, soft, nontender, no hepatosplenomegaly Skin: no rashes, warm and dry no jaundice Psychiatric: A+Ox3, euthymic affect Lymphatic: no lymphedema Results & Data Vital Signs (Past 12 Hours) Vital Signs Temp Pulse Resp BP Pulse Ox 01/01/19 15:10 74 16 99 01/01/19 15:03 74 17 01/01/19 15:01 76 22 119/65 01/01/19 14:50 80 13 01/01/19 14:40 81 16 01/01/19 14:30 81 20 102/55 L 01/01/19 14:20 83 16 01/01/19 14:10 74 16 01/01/19 14:00 75 18 100/54 L 01/01/19 13:50 72 15 01/01/19 13:40 77 13 01/01/19 13:30 74 15 97/57 L 96 01/01/19 13:20 72 24 87 L 01/01/19 13:18 85 19 117/57 L 89 L 01/01/19 13:17 76 20 110/64 97 01/01/19 13:16 72 22 110/59 L 99 01/01/19 13:15 36.5 C 73 20 102/59 L 100 01/01/19 13:13 72 18 114/62
--- NOTE | 2019-01-01 16:47 | History & Physical Report ---
Date of Service January 01, 2019 Assessment & Plan (1) Anemia: (2) Lower GI bleed: -admit to med/surg with tele -patient presenting from home with reports of bright red bleeding per rectum and a syncopal event -painless, bright red bleeding likely due to diverticular bleed -CT shows a mild colitis; currently afebrile, no leukocytosis - will defer antibx to GI -c scope 2010 - left sided diverticulosis -supportive care with IVF, serial H/H, transfuse PRN -per GI note - clears today, NPO after midnight for c-scope tomorrow (3) Syncope: -likely vasovagal / due to hypovolemia from lower GI bleed -no chest pain, troponin negative, EKG without acute ST changes -IVF -monitor orthostatic BPs (4) Dyslipidemia: -continue statin (5) DVT prophylaxis: -SCDs due to GI bleeding History of Present Illness Chief Complaint: Syncope, Bright Red Bleeding Per Rectum Primary Care Provider: Felecia Dennis, DO 63 year old female who presents to the ED for evaluation of syncope and bright red bleeding per rectum. Patient reports that when she woke up this morning, she had a large, loose bowel movement. She says she did not have the light on and did not pay attention to the color. A short time passed and she had another episode. She reports that when she returned to the bathroom the toilet water was pink from when she went before. She reports she then had another large, loose bloody bowel movement. She then went out to lunch with some friends and reports that while she was seated, she started to feel flushed and lightheaded. Her friends report that she fell to the side and was unconscious for about 5 se conds. When she came to, she went to the bathroom and again had a large, loose bloody bowel movement. She then came to the ED for further evaluation. She denies associated abdominal pain and nausea. No chest pain shortness of breath. No other recent illnesses, fever, and chills. She denies urinary symptoms. In the ED, hgb is 10.7 and patient is hemodynamically stable. Initial troponin is negative and EKG does not show any acute ST changes. Allergies Allergy/AdvReac Type Severity Reaction Status Date / Time Penicillins Allergy Unknown SHANNAKER Verified 01/01/19 14:56 SORES Home Medications Home Medications Medication Instructions Recorded Confirmed Type ascorbic acid (vitamin C) [Vitamin 500 mg PO HS 01/01/19 01/01/19 History C] atorvastatin 10 mg PO QPM 01/01/19 01/01/19 History biotin 1,000 mcg PO HS 01/01/19 01/01/19 History calcium carbonate [Calcium 500] 1,000 mg PO HS 01/01/19 01/01/19 History glucosamine HCl 1,000 mg PO HS 01/01/19 01/01/19 History goldenseal 325 mg PO HS 01/01/19 01/01/19 History lorazepam 0.5 mg PO HS PRN 01/01/19 01/01/19 History methylsulfonylmethane [MSM] 1,000 mg PO HS 01/01/19 01/01/19 History omega 2-swt-ppd-fish oil [Fish Oil] 1 cap PO HS 01/01/19 01/01/19 History turmeric 1,600 mg PO HS 01/01/19 01/01/19 History valerian root extract 300 mg PO HS 01/01/19 01/01/19 History vitamin B complex 1 tab PO HS 01/01/19 01/01/19 History vitamin E 400 unit PO HS 01/01/19 01/01/19 History zinc 50 mg PO HS 01/01/19 01/01/19 History Past Med/Surg History Medical History Dyslipidemia (Chronic) Surgical History S/P hip arthroscopy (Chronic) left Family History Mother Cerebral hemorrhage Brother Prostate cancer Social History Preferred Language: American Communication Ability: Effective Hearing Ability: Normal Beliefs That Will Affect Care: None marital status: Current Living Situation: Spouse Other Information That Helps Us Care for You: No Feels Safe at Home: Yes Smoking Status: Former smoker Hx Alcohol Use: Yes Alcohol Intake Frequency: Weekly Review of Systems Review of Systems: ROS per HPI, all other systems reviewed and negative Physical Exam Constitutional: WD/WN, vitals as above Eyes: PERRL, conjunctivae normal, anicteric sclerae ENMT: external ear and nose normal, oropharynx normal Respiratory: normal respiratory effort, lungs clear to auscultation Cardiovascular: Rate/Rhythm: regular rate and regular rhythm Vessels: normal peripheral pulses Extremities: no edema Gastrointestinal (Abdomen): normal bowel sounds, soft, nontender, no hepatosplenomegaly Musculoskeletal: no cyanosis or clubbing, extremities motor strength 5/5 Skin: no rashes, warm and dry Neurologic: PERRL, EOMI, accommodation nl, no face palsy, no dysarthria Psychiatric: A+Ox3, euthymic affect Results & Data Vital Signs (Past 12 Hours) Vital Signs Temp Pulse Resp BP Pulse Ox 01/01/19 15:10 74 16 99 01/01/19 15:03 74 17 01/01/19 15:01 76 22 119/65 01/01/19 14:50 80 13 01/01/19 14:40 81 16 01/01/19 14:30 81 20 102/55 L 01/01/19 14:20 83 16 01/01/19 14:10 74 16 01/01/19 14:00 75 18 100/54 L 01/01/19 13:50 72 15 01/01/19 13:40 77 13 01/01/19 13:30 74 15 97/57 L 96 01/01/19 13:20 72 24 87 L 01/01/19 13:18 85 19 117/57 L 89 L 01/01/19 13:17 76 20 110/64 97 01/01/19 13:16 72 22 110/59 L 99 01/01/19 13:15 36.5 C 73 20 102/59 L 100 01/01/19 13:13 72 18 114/62 Laboratory Results Short CBC 01/01/19 Range/Units 13:44 WBC 6.65 (4.8-10.8) K/uL Hgb 10.7 L (12.0-16.0) g/dL Hct 31.7 L (37-47) % Plt Count 192 (130-400) K/uL BMP 01/01/19 13:44 Sodium 139 Potassium 3.8 Chloride 107 Carbon Dioxide 24 BUN 20 H Creatinine 0.68 Glucose 175 H Calcium 7.8 L Cardiac Enzymes 01/01/19 Range/Units 13:44 Troponin I < 0.015 (0-0.045) ng/ml Liver Function 01/01/19 Range/Units 13:44 Total Bilirubin 0.6 (0.2-1) mg/dl AST 16 (15-37) U/L ALT 21 (12-78) U/L Alkaline Phosphatase 59 (45-117) U/L Albumin 3.3 L (3.4-5.0) gm/dl Diagnostic Findings CXR IMPRESSION: Minimal right basilar opacity statistically atelectatic CT ABD/PELVIS IMPRESSION: 1. Wall thickening of the ascending and proximal to mid transverse colon most suggestive of a mild colitis. The distribution is nonspecific and could suggest an infectious etiology. 2. Diverticulosis coli. No convincing evidence of diverticulitis. 3. Bilateral nonobstructing nephrolithiasis. Code Status & VTE Plan VTE Prophylaxis Plan VTE Prophylaxis will be ordered: Yes Supervising Physician Co-Signing Physician Notes ATTENDING ADDENDUM " pt seen and examined ,care co ordineated with Jillian GASTON this is a 63 yo pt presented with brigth red blood per rectum multiple episodes no abdiminal pain , no nausea or vomiting not taking any anticoagulation HB 10 with stable vitals pt reported of feeling dizzy and lightheaded while having gross hematochezia no symptom at present CT abdomen /pelvis : shows diverticulosis , no evidence of diverticulitis mild colitis stool for c diff ordered -result pending will start on empirically Cipro and Flagyl follow H&H appreciate input from GI plan for colonoscopy tomorrow Lala Valadez MD
[2019-01-01] MEDS ORDERED: LAVAGE SOLUTION 4000ML PO SCH (17:00)
[2019-01-01] MEDS ORDERED: LORazepam 0.5 MG TAB PO PRN (17:56)
[2019-01-01] MEDS ORDERED: ACETAMINOPHEN 325 MG TAB PO PRN (17:56)
[2019-01-01] MEDS: SODIUM CHLORIDE 0.9% 1000ML 1,000 ML IV SCH (19:33)
[2019-01-01 19:52] LABS: Hematocrit (blood only) 30.9 % (37-47); Hemoglobin 10.3 g/dL (12.0-16.0)
[2019-01-01] MEDS ORDERED: ATORVASTATIN 10 MG TAB PO SCH (21:00)
[2019-01-01] MEDS: metroNIDAZOLE 500 MG/100 ML BAG IV SCH (22:01)
[2019-01-01] MEDS: CIPROFLOXACIN 400 MG/200 ML BAG IV SCH (23:29)
[2019-01-02 02:47] LABS: Appearance Urine Cloudy (Clear); Bacteria Urine Automated Negative (Negative); Bilirubin Urine Negative (Negative); Blood Urine Trace (Negative); Color Urine Yellow; Epithelial Cell Urine Auto 20-30 /lpf (0-5); Glucose Urine UA Negative (Negative); Ketones Urine Negative (Negative); Leukocyte Esterase Urine 1+ (Negative); Nitrite Urine Negative (Negative); Protein Urine Negative (Negative); RBC Urine Automated 0-4 /hpf (0-4); Specific Gravity Urine 1.032 (1.000-1.030); Urobilinogen Urine Negative (Negative)
[2019-01-02 03:08] LABS: Mucus Urine Present (None Prsent)
[2019-01-02] MEDS: metroNIDAZOLE 500 MG/100 ML BAG IV SCH ×2 (05:35→16:41)
[2019-01-02] MEDS: SODIUM CHLORIDE 0.9% 1000ML 1,000 ML IV SCH ×2 (05:36→16:41)
[2019-01-02 06:34] LABS: Hematocrit (blood only) 28.8 % (37-47); Hemoglobin 9.7 g/dL (12.0-16.0); Mean Corpuscular Hgb Conc 33.7 g/dL (32-36); Mean Corpuscular Volume 87.8 fL (80-100); Platelet Count 194 K/uL (130-400); RDW Coefficient of Variation 13.7 % (11.5-14.5); RDW Standard Deviation 44.3 fL (36.4-46.3); Red Blood Count 3.28 M/uL (4.2-5.4); White Blood Count 5.76 K/uL (4.8-10.8)
[2019-01-02 06:58] LABS: BUN Creatinine Ratio 12.4 (10-20); Creatinine Clr Calc Pharmacy 80.2 ml/min; Est GFR (African American) 111.2; Potassium 3.7 mmol/L (3.5-5.1)
--- NOTE | 2019-01-02 09:27 | History & Physical Bridge Note ---
Date of Service January 02, 2019 History & Physical Bridge Note I have examined the patient, reviewed the History & Physical and in the interval since the performance of the History & Physical I have noted the following changes of clinical significance: no changes noted Pt completed Golytely prep. Did have bloody output when she initially started the prep. But now liquid clear stools. She denies any abd pain, n/v, light headedness. Been NPO for colonoscopy today. VS, labs, CT reviewed. H/H stable. CT w colitis on ascending and mid transverse colon, suspected infectious in nature. Cdiff negative, stool cx uncollected. She was started on Cipro/Flagyl IV antibx. Exam: - AAOx 3, in NAD - CTA bilateral lungs - HRR, no murmur or gallops - Abd soft, non tender - No edema on bilateral LE GI will give further recs after colonoscopy is completed. Supervising Physician Co-Signing Physician Notes I performed a history and physical examination of the patient, including specifically on physical exam - soft, nontender abdomen. I have discussed the patient's management with Melva. Please refer to the nurse practitioner's note for the documented findings and plan of care. CT showing Colitis. Reports using NSAIDs, will do EGD and colonoscopy.
[2019-01-02] MEDS: CIPROFLOXACIN 400 MG/200 ML BAG IV SCH (11:18)
[2019-01-02] MEDS ORDERED: ePHEDrine sulfate 50 MG/ML AMP IV PRN (13:41)
[2019-01-02] MEDS ORDERED: ATROPINE SULFATE 0.1 MG/ML 10ML SYR IV PRN (13:41)
--- NOTE | 2019-01-02 13:41 | Anesthesiology Consultation ---
Date of Service January 02, 2019 Assessment & Plan Chart Review Chart Review: Acceptable Risk for Surgery and Patient NOT seen in Pre Admission Testing Consults Requested none ASA ASA3 Proposed Anesthesia Anesthesia Type: MAC Risk / Benefits Reviewed With: PT / POA / Parent / Guardian, Accepts Plan and Informed Consent Obtained History Surgery Operation Date: 01/02/19 09:30 Proposed Procedures p Colonoscopy Dr Weaver - Jay Weaver MD Height/Weight Height: 5 ft 4 in Weight: 53.1 kg Allergies Allergy/AdvReac Type Severity Reaction Status Date / Time Penicillins Allergy Unknown CANKER Verified 01/01/19 14:56 SORES Medications Home Medications Medication Instructions Recorded Confirmed Last Taken ascorbic acid (vitamin C) [Vitamin 500 mg PO HS 01/01/19 01/01/19 Unknown C] atorvastatin 10 mg PO QPM 01/01/19 01/01/19 Unknown biotin 1,000 mcg PO HS 01/01/19 01/01/19 Unknown calcium carbonate [Calcium 500] 1,000 mg PO HS 01/01/19 01/01/19 Unknown glucosamine HCl 1,000 mg PO HS 01/01/19 01/01/19 Unknown goldenseal 325 mg PO HS 01/01/19 01/01/19 Unknown lorazepam 0.5 mg PO HS PRN 01/01/19 01/01/19 Unknown methylsulfonylmethane [MSM] 1,000 mg PO HS 01/01/19 01/01/19 Unknown omega 7-hwk-brd-fish oil [Fish Oil] 1 cap PO HS 01/01/19 01/01/19 Unknown turmeric 1,600 mg PO HS 01/01/19 01/01/19 Unknown valerian root extract 300 mg PO HS 01/01/19 01/01/19 Unknown vitamin B complex 1 tab PO HS 01/01/19 01/01/19 Unknown vitamin E 400 unit PO HS 01/01/19 01/01/19 Unknown zinc 50 mg PO HS 01/01/19 01/01/19 Unknown Active Medications Generic Name Dose Route Start Last Admin Trade Name Freq PRN Reason Stop Dose Admin Atorvastatin Calcium 10 mg 01/01/19 21:00 01/01/19 20:37 Lipitor PO 01/31/19 20:59 10 mg QPM PILY Administration Sodium Chloride 1,000 mls @ 100 mls/hr 01/01/19 17:56 09/10/19 05:36 Nss 1000ml IV 01/31/19 17:55 100 mls/hr .Q10H PILY Administration Ciprofloxacin 400 mg in 200 mls @ 100 mls/hr 01/01/19 23:00 01/02/19 11:18 Cipro IV 01/11/19 22:59 100 mls/hr Q12H PILY Administration Protocol Metronidazole 500 mg in 100 mls @ 100 mls/hr 01/01/19 22:00 01/02/19 07:30 Flagyl IV 01/11/19 21:59 Infused Q8H PILY Infusion NPO Date Last Intake of Fluids: 01/01/19 Time Last Intake of Fluids: 00:00 Date Last Intake of Solids: 01/01/19 Time Last Intake of Solids: 11:45 Past Medical History Medical History Dyslipidemia (Chronic) Exercise / Class Metabolic Activity II 4-5 Yardwork/Stairs/Walk up hill Past Family History Family History Mother Cerebral hemorrhage Brother Prostate cancer Past Surgical History Surgical History S/P hip arthroscopy (Chronic) left Past Anesthesia History No Hx of Anesthesia Complications and No Family Hx of Anesthesia Complications History of PONV No Hx of Motion Sickness and History of PONV Social History Smoking Status: Former smoker Hx Alcohol Use: Yes substance use type: does not use Physical Exam Vital Signs Last Vital Signs Temp 37.2 C 01/02/19 13:18 Pulse 69 01/02/19 13:18 Resp 16 01/02/19 13:18 BP 141/74 H 01/02/19 13:18 Pulse Ox 97 01/02/19 13:18 Constitutional not obese ENMT Mouth: no dentition abnormality Thyromental Distance: > or= 3.5 Finger Breadths Mallampati Class: II Neck normal visual inspection and trachea midline; neck extension not limited Respiratory normal respiratory effort Auscultation: lungs clear to auscultation bilaterally Cardiovascular Rate/Rhythm: regular rate and regular rhythm Heart Sounds: no murmur Vessels: no carotid bruit Musculoskeletal Spine: normal cervical ROM Neurologic moves all extremities Motor/Sensory: no sensory deficit Psychiatric Orientation: alert and oriented x 3 Testing Laboratory Results 01/02/19 06:19 01/02/19 06:19 PT 10.5 Seconds (9.0-12.0) 01/01/19 13:44 INR 1.0 (0.9-1.1) 01/01/19 13:44 Urine Color Yellow 01/02/19 02:39 Urine Appearance Cloudy (Clear) A 01/02/19 02:39 Urine pH 5.0 (4.5-7.5) 01/02/19 02:39 Ur Specific [place] 1.032 (1.000-1.030) H 01/02/19 02:39 Urine Protein Negative (Negative) 01/02/19 02:39 Urine Glucose (UA) Negative (Negative) 01/02/19 02:39 Urine Ketones Negative (Negative) 01/02/19 02:39 Urine Nitrite Negative (Negative) 01/02/19 02:39 Ur Leukocyte Esterase 1+ (Negative) H 01/02/19 02:39 Urine WBC (Auto) 10-30 /hpf (0-5) H 01/02/19 02:39 Urine RBC (Auto) 0-4 /hpf (0-4) 01/02/19 02:39 U Hyaline Cast (Auto) 1-5 /lpf (0-5) 01/02/19 02:39 U Epithel Cells (Auto) 20-30 /lpf (0-5) H 01/02/19 02:39 Urine Bacteria (Auto) Negative (Negative) 01/02/19 02:39
[2019-01-02] MEDS ORDERED: LIDOCAINE HCL 2% 2 ML VIAL/AMP(20MG/ML) INFIL ONE ×2 (14:46→15:12)
[2019-01-02] MEDS ORDERED: PROPOFOL IV EMULSION 10 MG/ML 20 ML VIAL IV ONE ×2 (14:46→15:12)
--- NOTE | 2019-01-02 15:36 | GI REPORT ---
Patient Name: Agnieszka Figueroa Procedure Date: 01/02/2019 2:52 PM Date of : 1955 Admit Type: Inpatient Age: 63 Gender: Female Attending MD: Jay Weaver MD Procedure: Upper GI endoscopy Providers: Jay Weaver MD Referring MD: Lala Valadez Indications: Hematochezia Medicines: Monitored Anesthesia Care Complications: No immediate complications. Estimated Blood Loss: Estimated blood loss: none. Procedure: Pre-Anesthesia Assessment: - Prior to the procedure, a History and Physical was performed, and patient medications and allergies were reviewed. The patient is competent. The risks and benefits of the procedure and the sedation options and risks were discussed with the patient. All questions were answered and informed consent was obtained. Patient identification and proposed procedure were verified by the physician and the nurse in the procedure room. Mental Status Examination: alert and oriented. Airway Examination: normal oropharyngeal airway and neck mobility. Respiratory Examination: clear to auscultation. CV Examination: normal. ASA Grade Assessment: III - A patient with severe systemic disease. After reviewing the risks and benefits, the patient was deemed in satisfactory condition to undergo the procedure. The anesthesia plan was to use monitored anesthesia care (MAC). Immediately prior to administration of medications, the patient was re-assessed for adequacy to receive sedatives. The heart rate, respiratory rate, oxygen saturations, blood pressure, adequacy of pulmonary ventilation, and response to care were monitored throughout the procedure. The physical status of the patient was re-assessed after the procedure. After obtaining informed consent, the endoscope was passed under direct vision. Throughout the procedure, the patient's blood pressure, pulse, and oxygen saturations were monitored continuously. The Endoscope was introduced through the mouth, and advanced to the second part of duodenum. The upper GI endoscopy was accomplished without difficulty. The patient tolerated the procedure well. Findings: The examined esophagus was normal. The entire examined stomach was normal. The duodenal bulb and second portion of the duodenum were normal. Impression: - Normal esophagus. - Normal stomach. - Normal duodenal bulb and second portion of the duodenum. - No specimens collected. Recommendation: - Perform a colonoscopy today. Jay Weaver MD 01/02/2019 3:36:04 PM This report has been signed electronically. Note Initiated On: 01/02/2019 2:52 PM Number of Addenda: 0 I attest to the content of the Intraoperative Record and orders documented therein, exceptions below {[id number]}
--- NOTE | 2019-01-02 15:39 | GI REPORT ---
Patient Name: Agnieszka Figueroa Procedure Date: 01/02/2019 2:52 PM Date of : 1955 Admit Type: Inpatient Age: 63 Gender: Female Attending MD: Jay Weaver MD Procedure: Colonoscopy Providers: Jay Weaver MD Referring MD: Lala Valadez Indications: Rectal bleeding Medicines: Monitored Anesthesia Care Complications: No immediate complications. Estimated Blood Loss: Estimated blood loss: none. Procedure: Pre-Anesthesia Assessment: - Prior to the procedure, a History and Physical was performed, and patient medications and allergies were reviewed. The patient is competent. The risks and benefits of the procedure and the sedation options and risks were discussed with the patient. All questions were answered and informed consent was obtained. Patient identification and proposed procedure were verified by the physician and the nurse in the procedure room. Mental Status Examination: alert and oriented. Airway Examination: normal oropharyngeal airway and neck mobility. Respiratory Examination: clear to auscultation. CV Examination: normal. ASA Grade Assessment: III - A patient with severe systemic disease. After reviewing the risks and benefits, the patient was deemed in satisfactory condition to undergo the procedure. The anesthesia plan was to use monitored anesthesia care (MAC). Immediately prior to administration of medications, the patient was re-assessed for adequacy to receive sedatives. The heart rate, respiratory rate, oxygen saturations, blood pressure, adequacy of pulmonary ventilation, and response to care were monitored throughout the procedure. The physical status of the patient was re-assessed after the procedure. After I obtained informed consent, the scope was passed under direct vision. Throughout the procedure, the patient's blood pressure, pulse, and oxygen saturations were monitored continuously. The Colonoscope was introduced through the anus and advanced to the terminal ileum. The colonoscopy was performed without difficulty. The patient tolerated the procedure well. The quality of the bowel preparation was good. The terminal ileum, ileocecal valve, appendiceal orifice, and rectum were photographed. Findings: The perianal and digital rectal examinations were normal. The terminal ileum appeared normal. A 6 mm polyp was found in the ascending colon. The polyp was sessile. The polyp was removed with a cold snare. Resection and retrieval were complete. Verification of patient identification for the specimen was done by the physician and nurse using the patient's name and date. Scattered small and large-mouthed diverticula were found in the entire colon. Non-bleeding internal hemorrhoids were found during retroflexion. The hemorrhoids were small. Impression: - No evidence of GI bleeding. - The examined portion of the ileum was normal. - One 6 mm polyp in the ascending colon, removed with a cold snare. Resected and retrieved. - Diverticulosis in the entire examined colon. - Non-bleeding internal hemorrhoids. Recommendation: - [facility]. - Await pathology results. - Repeat colonoscopy in 5 years for surveillance. - Advance diet as tolerated. - Recall GI if needed. Jay Weaver MD 01/02/2019 3:38:42 PM This report has been signed electronically. Note Initiated On: 01/02/2019 2:52 PM Number of Addenda: 0 I attest to the content of the Intraoperative Record and orders documented therein, exceptions below {[id number]}
--- NOTE | 2019-01-02 15:45 | Anesthesiology Progress Note ---
Date of Service January 02, 2019 Anesthesia Post Procedure Vital Signs Vital Signs: Temp Pulse Pulse Pulse Resp BP BP 01/02/19 15:39 76 16 129/50 L 01/02/19 13:18 37.2 C 69 16 141/74 H 01/02/19 11:22 36.9 C 83 18 127/78 01/02/19 07:35 36.8 C 61 18 119/68 01/02/19 03:57 36.9 C 62 18 108/64 01/02/19 02:05 77 01/01/19 23:32 36.4 C L 70 20 145/78 H 01/01/19 19:24 36.5 C 76 18 146/76 H 01/01/19 19:22 37 C 69 20 106/63 01/01/19 18:25 66 18 100/83 01/01/19 17:17 69 18 109/62 01/01/19 16:41 75 18 100/83 Pulse Ox 01/02/19 15:39 100 01/02/19 13:18 97 01/02/19 11:22 99 01/02/19 07:35 97 01/02/19 03:57 98 01/02/19 02:05 01/01/19 23:32 99 01/01/19 19:24 100 01/01/19 19:22 98 01/01/19 18:25 100 01/01/19 17:17 100 01/01/19 16:41 100 Transfer of Care Handoff Completed per policy Notes Mental Status: alert / awake / arousable Patient Amnestic to Procedure: Yes Nausea / Vomiting: adequately controlled Pain: adequately controlled Airway Patency, RR, SpO2: stable & adequate BP & HR: stable & adequate Hydration State: stable & adequate Anesthetic Complications: no major complications apparent and Pt Satisfied with anesthetic care
--- NOTE | 2019-01-02 17:04 | Discharge Summary ---
Date of Service January 02, 2019 Admission HPI Per Admitting Provider 63 year old female who presents to the ED for evaluation of syncope and bright red bleeding per rectum. Patient reports that when she woke up this morning, she had a large, loose bowel movement. She says she did not have the light on and did not pay attention to the color. A short time passed and she had another episode. She reports that when she returned to the bathroom the toilet water was pink from when she went before. She reports she then had another large, loose bloody bowel movement. She then went out to lunch with some friends and reports that while she was seated, she started to feel flushed and lightheaded. Her friends report that she fell to the side and was unconscious for about 5 seconds. When she came to, she went to the bathroom and again had a large, loose bloody bowel movement. She then came to the ED for further evaluation. She denies associated abdominal pain and nausea. No chest pain shortness of breath. No other recent illnesses, fever, and chills. She denies urinary symptoms. In the ED, hgb is 10.7 and patient is hemodynamically stable. Initial troponin is negative and EKG does not show any acute ST changes. Principal Diagnosis BRIGHT RED BLOOD PER RECTUM , GI BLEED POSSIBLE DUE TO DIVERTICULOSIS Discharge Data Allergies Allergy/AdvReac Type Severity Reaction Status Date / Time Penicillins Allergy Unknown CANKER Verified 01/01/19 14:56 SORES Consultations 01/01/19 15:27 ED Decision to Admit Stat 01/01/19 17:56 Consult Gastroenterology Routine Procedures Performed Operation Date: 01/02/19 09:30 Actual Procedures p Colonoscopy Polypectomy - Jay Weaver MD s Esophagogastroduodenoscopy - Jay Weaver MD Ordered Studies 01/01/19 15:24 CT abd pelvis IV con only Stat Hospital Course (1) Anemia: (2) Lower GI bleed: -Possible diverticular bleed, Did not had any hematochezia blood in stool since admission, H&H remained stable -Patient presented from home with reports of bright red bleeding per rectum and a syncopal event -painless, bright red bleeding likely due to diverticular bleed -CT shows a mild colitis; currently afebrile, no leukocytosis - -c scope 2010 - left sided diverticulosis -Patient input from GI, status post EGD and colonoscopy today: Shows no evidence of gastritis inflammation or enteritis, normal exam of stomach did not:, Polyp noted in the distal colon status post polypectomy No evidence of bleeding Diet advanced tolerating well Able to be discharged home today Patient is advised to avoid antiplatelets: Aspirin, NSAIDs Outpatient follow-up with family physician Repeat colonoscopy in 5 years for colonic polyp evaluation (3) Syncope: -likely vasovagal / due to hypovolemia from lower GI bleed No further episodes, ambulating independently vitals remained stable No further episode of lower GI bleed Stable to be discharged home (4) Dyslipidemia: -continue statin (5) DVT prophylaxis: -SCDs due to GI bleeding Disposition: Stable to be discharged home today Total Time Total Time Spent Total Time Spent (In Minutes): approx 40 mins Total Time Includes: Examination of the Patient, Discharge Planning, Medication Reconciliation and Communication With Other Providers Discharge Plan Discharge Items Patient Disposition: Home - Self-Care Reason For Visit: LOWER GI BLEED Discharge Diagnosis: BRIGHT RED BLOOD PER RECTUM , GI BLEED POSSIBLE DUE TO DIVERTICULOSIS Condition: Good Discharge Goals: Decrease discomfort Activity: Resume your previous activity Non-emergency contact: Primary Care Provider Call non-emergency contact if: you have any medication questions Follow-up/Referrals: Felecia Dennis DO [Primary Care Provider] - 01/05/19 11:05 am Diet: Low Fiber Other Ambulatory Orders: Complete Blood Count no Diff (Routine) Timeframe: 20190105 Location: Determined by Patient Ordered By: Lala Valadez [facility] Provider Instructions: FOLLOW UP WITH FAMILY PHYSICIAN DR DENNIS ON 01/05/19 @ 111: 05 am do not take aspirin -can cause bleeding per retun do not take Fish oil-have some antiplatelet effect " does not allow blood to clot , leading to more bleeding via gut PLEASE NOTIFY YOUR FAMILY PHYSICIAN WITH ANY EVENT OF BRIGHT RED BLOOD PER RECTUM OR DARK STOOL REPEAT COLONOSCOPY IN 5 MONTHS FOR EVALUATION OF COLONIC POLYP can start taking Iron supplement -over the counter Prescriptions: Continued atorvastatin 10 mg tablet 10 mg PO QPM RF: 0 vitamin B complex Tablet 1 tab PO HS RF: 0 MSM 1,000 mg Capsule 1,000 mg PO HS RF: 0 lorazepam 0.5 mg tablet 0.5 mg PO HS PRN (Reason: Insomnia) RF: 0 calcium carbonate [Calcium 500] 500 mg calcium (1,250 mg) Tablet 1,000 mg PO HS RF: 0 ascorbic acid (vitamin C) [Vitamin C] 500 mg Tablet 500 mg PO HS RF: 0 zinc 50 mg Tablet 50 mg PO HS RF: 0 vitamin E 400 unit Capsule 400 unit PO HS RF: 0 goldenseal 325 mg Capsule 325 mg PO HS RF: 0 glucosamine HCl 500 mg Tablet 1,000 mg PO HS RF: 0 biotin 1,000 mcg Tablet,Chewable 1,000 mcg PO HS RF: 0 valerian root extract 150 mg Capsule 300 mg PO HS RF: 0 turmeric 400 mg Capsule 1,600 mg PO HS RF: 0 Discontinued omega 9-[id number] oil [Fish Oil] 1,000 mg (120 mg-180 mg) Capsule 1 cap PO HS RF: 0 Stand-Alone Forms: [facility]/Other Patient Handouts: Bleeding Rectal, ED Diverticulosis Discharge Orders: Discharge Order (Routine); Ordered 01/02/19 Ordered By: Lala Valadez Admission Data Admit Date/Time: 01/01/19 15:57 Attending Provider: Lala Valadez Admit Provider: Lala Valadez Primary Care Provider: Felecia Dennis Other Providers: Lala Valadez ; Jay Weaver Service: Telemetry Medical Other Interventions: Discharge Summary Assessment (RN) Last Done: 01/02/19 17:26
== END 2019-01-02 19:03 | disposition home or self-care (01) ==
LOC: ED 13:08 → 2N 13:08